=== PATIENT | male | born 1945 | race Caucasian/White ===

== ENCOUNTER 2016-07-15 05:29 | Day surgery (SDC) | payer MEDICARE, OTHER ==
[~2016-07-15 05:29] MED LIST: DIL4TAB PO; FISH-EPA1000 MG PO; IBU-200200 MG PO; LIPITOR10 PO; LISINOPRIL40 MG PO; METHOC500B PO; MULTIPLE VIT PO; NEUR100 PO; NORV5 PO; OXYCOD PO; PERCOCET 10/3251 TAB PO; PRIN10 PO; V2 PO
== END 2016-07-15 08:07 | disposition home or self-care (01) ==
LOC: SDC 05:29
PROVIDERS: Orthopaedic Surgery Orthopaedic Surgery of the Spine
PROC: 3E0R3BZ Introduction of Anesthetic Agent into Spinal Canal, Percutaneous Approach (ICD-10-PCS; 2016-07-15)
PROC: 3E0R33Z Introduction of Anti-inflammatory into Spinal Canal, Percutaneous Approach (ICD-10-PCS; principal; 2016-07-15 08:30)
DX: M54.17 Radiculopathy, lumbosacral region (principal); E78.00 Pure hypercholesterolemia, unspecified; G47.30 Sleep apnea, unspecified; I10 Essential (primary) hypertension; M19.90 Unspecified osteoarthritis, unspecified site; N40.0 Benign prostatic hyperplasia without lower urinary tract symptoms; Z96.1 Presence of intraocular lens; Z98.890 Other specified postprocedural states; Z90.89 Acquired absence of other organs
CPT/HCPCS: J2250; J3010; Q9967

== ENCOUNTER 2016-08-19 06:25 | Day surgery (SDC) | payer MEDICARE, OTHER ==
--- NOTE | ~2016-08-19 | OP ---
Record Of Operation [facility] [address] [place]. [address] NAME: JOSEPH SEARS : 47 STATUS : [facility]#: [id number] AGE: 71 ADM/REG DATE : 08/19/16 MR#: [id number] REPORT SERV DATE: 08/20/16 DICTATED BY: AMRIT ROWELL DATE: 08/19/16 REPORT STATUS : Draft TRANSCRIBED BY: MODL DATE: 08/19/16 DATE OF PROCEDURE: 08/19/2016 PREOPERATIVE DIAGNOSES: 1. Left L5-S1 painful hardware, possible malposition with left S1 radiculopathy. 2. Left L5-S1 facet hypertrophy, foraminal stenosis. POSTOPERATIVE DIAGNOSES: 1. Left L5-S1 painful hardware, possible malposition with left S1 radiculopathy. 2. Left L5-S1 facet hypertrophy, foraminal stenosis. PROCEDURE: 1. Microscopic navigation-assisted surgery. 2. Left L5-S1 hardware removal. 3. Left L5-S1 hemilaminectomy, foraminotomy, facetectomy. SURGEON: Amrit Rowell D.O. ONLINE PROGRAM COORDINATOR: Shalom Toribio. ANESTHESIA: General. BLOOD LOSS: 25 mL. INDICATIONS FOR SURGERY: 71-year-old male who has had previous lumbar fusions. The patient had a lumbar fusion several months ago and resolved the right leg pain complete but immediately postop, he had new onset of left leg pain, which he has never had before. The pain did not respond to time and medication including Neurontin, etc. He had repeat of the CT scan and there was a question of a slightly malpositioned screw. There is facet arthritis and some degree of narrowing of the foramen on the right. The patient traces S1 as his area of severe abnormality and severe pain in the buttock down the posterior lateral aspect of his leg all the way to the lateral side of his foot. His Achilles reflex is completely absent. He has no motor weakness on the left or right. He does have an intact right Achilles reflex, thus it appears he has a left-sided S1 radiculopathy. He is brought to surgery for the above procedure having failed conservative care. Prior to surgery, risks, benefits, alternatives, and expectations have been explained in detail. Consent form has been signed. Also please note, because of the complexity of surgery and the need to identify correct level of surgery intraoperatively, as well as desire to carry out the safest and most precise dissection, I feel that intraoperative navigation is mandatory. DESCRIPTION OF PROCEDURE: Antibiotic prophylaxis was given. Neurophysiology monitoring leads inserted. The patient was brought to the operative suite. General anesthetic including endotracheal intubation was administered. He was placed prone on a Dimas spine frame. Bony prominences were carefully padded. Thoracolumbar spine was scrubbed with Record Of Operation [address] [place]. [address] NAME: JOSEPH SEARS : 47 STATUS : [facility]#: [id number] AGE: 71 ADM/REG DATE : 08/19/16 MR#: [id number] REPORT SERV DATE: 08/20/16 DICTATED BY: AMRIT ROWELL DATE: 08/19/16 REPORT STATUS : Draft TRANSCRIBED BY: VICKIE DATE: 08/19/16 Hibiclens solution. DuraPrep was painted. Sterile drapes were applied. A small stab wound was carried out over the right posterior superior iliac spine. A percutaneous pin with navigational frame attached was inserted in the PSIS. Intraoperative CT scan with O-arm obtained, CT information used to register the navigational system. With navigational assistance, I identified the location of the hardware. A 3-cm skin incision was carried out. A blunt navigated probe placed through the fascia, muscle, and docked over the hardware. Muscle dilators were inserted followed by placement of a tubular retractor attached to an arm mount on the table. The microscope was sterilely draped and used throughout the remainder of the procedure. With navigational assistance, I localized the hardware, removed the set screws, the luzmaria, and each of the pedicle screws. Palpating with a pedicle probe, I could not say for sure that there was an obvious defect. I repositioned the tubular retractor over the facet joint. I used a combination of a cutting bur, a jasmin bur, and 2 mm and 3 mm Kerrison rongeurs. I worked from lateral to medial and removed the entire facet joint, the lamina of L4 including the inferior articular process. I removed the pars interarticularis and I removed the superior aspect of the S1 facet down to the top of the pedicle. With this surgery, the potential causes of his S1 radiculopathy had been completely addressed. No nerve impingement found that was obvious on the medial side of the pedicle of S1. The retractors were removed. The fascial opening was closed with interrupted #1 Vicryl suture. The subcutaneous tissue was closed with 2-0 Vicryl sutures, 2-0 vertical mattress, nylon suture was used for skin closure. Sterile dressings applied. The patient awakened, extubated, and taken to the recovery room in satisfactory condition having tolerated procedure well. Sponge, needle, and instrument counts were correct. No intraoperative complications noted. CELINE/VICKIE rit Rowell D.O. / [id number] CC: Daryl Moncada DO
[2016-08-19 07:51] LABS: HEMATOCRIT 45.9 % (40.0-51.0); HEMOGLOBIN 15.9 g/dL (13.6-17.8)
[2016-08-19 08:03] LABS: BUN (BLOOD UREA NITROGEN) 9 MG/DL (6-23); CALCIUM, SERUM 8.6 MG/DL (8.5-10.4); CHLORIDE, SERUM 107 MMOL/L (96-112); CO2 (CARBON DIOXIDE) 28 MMOL/L (24-34); CREATININE 0.81 MG/DL (0.70-1.30); GFR AFRICAN AMERICAN 104 ML/MIN (>=60); GFR NON AFRICAN AMERICAN 90 ML/MIN (>=60); GLUCOSE, SERUM 92 MG/DL (60-99); SODIUM, SERUM 140 MMOL/L (135-148)
== END 2016-08-19 18:17 | disposition home or self-care (01) ==
LOC: SDC 06:25
PROVIDERS: Orthopaedic Surgery Orthopaedic Surgery of the Spine
PROC: 0QP004Z Removal of Internal Fixation Device from Lumbar Vertebra, Open Approach (ICD-10-PCS; principal; 2016-08-19 09:15)
PROC: 00NY0ZZ Release Lumbar Spinal Cord, Open Approach (ICD-10-PCS; 2016-08-19 09:15)
DX: T84.84XA Pain due to internal orthopedic prosthetic devices, implants and grafts, initial encounter (principal); M46.87 Other specified inflammatory spondylopathies, lumbosacral region; M48.07 Spinal stenosis, lumbosacral region; M54.17 Radiculopathy, lumbosacral region; M19.90 Unspecified osteoarthritis, unspecified site; I10 Essential (primary) hypertension; N40.0 Benign prostatic hyperplasia without lower urinary tract symptoms; E78.00 Pure hypercholesterolemia, unspecified; G47.33 Obstructive sleep apnea (adult) (pediatric); G62.9 Polyneuropathy, unspecified; Z90.89 Acquired absence of other organs; Z98.41 Cataract extraction status, right eye; Z98.42 Cataract extraction status, left eye; Z96.1 Presence of intraocular lens; Z99.89 Dependence on other enabling machines and devices; Z96.652 Presence of left artificial knee joint; Z96.612 Presence of left artificial shoulder joint; Z96.611 Presence of right artificial shoulder joint; Z98.890 Other specified postprocedural states; Z85.820 Personal history of malignant melanoma of skin; Z98.1 Arthrodesis status
CPT/HCPCS: 80048; 85014; 85018; 88300; 88304; 88311; 93005; A9270-GY; J0690; J2250; J2274; J2405; J2710; J3010